=== PATIENT | female | born 1985 | race Caucasian/White ===

== ENCOUNTER 2021-11-06 16:36 | Emergency (ER) | payer SELFPAY ==
[~2021-11-06] VITALS: Ht 177.8 cm; Wt 139.3 kg
[2021-11-06] MEDS ORDERED: BROMFED DM COU118 ML PO (17:54)
[2021-11-06] MEDS ORDERED: CEFDINIR300 MG PO (17:54)
== END 2021-11-06 18:25 | disposition home or self-care (01) ==
LOC: FSED 16:46
DX: U07.1 COVID-19 (principal); H66.90 Otitis media, unspecified, unspecified ear; Z91.018 Allergy to other foods
CPT/HCPCS: 99282